=== PATIENT | female | born 1985 | race African-American/Black ===

== ENCOUNTER 2024-09-26 09:20 | Emergency (ER) | payer MEDICAID, OTHER ==
[~2024-09-26] VITALS: Ht 157.5 cm; Wt 102.5 kg
[2024-09-26 12:04] VITALS: BP 141/96; TEMP 98.3
[2024-09-26 12:12] VITALS: PULSE 97; RESP 18; O2SAT 97
[2024-09-26] MEDS: PROMETHAZINE W/CODEINE 5 ML ORAL SYRUP PO ONE (12:30)
[2024-09-26] MEDS: ACETAMINOPHEN 325 MG TAB PO ONE (13:22)
[2024-09-26 13:33] LABS: COVID19 ANTIGEN SOFIA FIA NEGATIVE (NEGATIVE); Rapid Influenza A Negative (Negative); Rapid Influenza B Negative (Negative)
[2024-09-26] MEDS ORDERED: ACET500T58 PO (13:49)
[2024-09-26] MEDS ORDERED: IBUP-1454 PO (13:49)
[2024-09-26] MEDS ORDERED: PSEU120T18 PO (13:49)
[2024-09-26] MEDS ORDERED: BENZ100C97 PO (13:49)
[2024-09-26] MEDS ORDERED: PROM1SOL4 PO (13:49)
--- NOTE | 2024-09-26 13:49 | ED.PDOC ---
History of Present Illness HPI Comments 39-year-old with no MHx presents for URI symptoms x3 weeks. Complains of a nonproductive cough, frontal headache, diarrhea x2 days. Had two nonbloody loose stools today. Also complains of sneezing, runny nose. Taking Tylenol as needed. [id number] medication helps minimally Denies fevers chills night sweats unintentional weight loss Denies persistent chest pain, shortness of breath, leg swelling Denies history of asthma nor any breathing conditions Denies history of pneumonia Denies recent international travel Chief Complaint: Flu like Time Seen by MD: 11:38 Reviewed Notes: Nurses Notes, Medications, Allergies Information Source: Patient Family History Family History: Reviewed,noncontributory to illness Social History Smoker: Non-Smoker Alcohol: Denies ETOH Use Drugs: Denies Drug Use All Other Systems: Reviewed and Negative (Per HPI) Physical Exam General Appearance: No Apparent Distress, Normal HEENT: Normal ENT Inspection, Pharynx Normal, TMs Normal Neck: Full Range of Motion, Non-Tender, Normal, Normal Inspection Respiratory: Chest Non-Tender, Lungs Clear, No Accessory Muscle Use, No Respiratory Distress, Normal Breath Sounds Cardiovascular: No Edema, No JVD, No Murmur, No Gallop, Normal Peripheral Pulses, Regular Rate/Rhythm Breast Exam: Deferred Gastrointestinal: No Organomegaly, Non Tender, No Pulsatile Mass, Normal Bowel Sounds, Soft Genitalia: Deferred Pelvic: Deferred Rectal: Deferred Extremities: No calf tenderness, Normal capillary refill, Normal inspection, Normal range of motion, Non-tender, No pedal edema Musculoskeletal : Apperance: Normal Neurologic: Alert, fondant cooker II-XII nml as Tested, No Motor Deficits, Normal Affect, Normal Mood, No Sensory Deficits Cerebellar Function: Normal Reflexes: Normal Skin: Dry, Normal Color, Warm Lymphatic: No Adenopathy Was a procedure done? Was a procedure done?: No Fever Differential Dx Differential Diagnosis: Viral Syndrome, Pharyngitis, Other X-Ray, Labs, Meds, VS Vital Signs Date Time Temp Pulse Resp B/P (MAP) Pulse Ox O2 Delivery O2 Flow Rate FiO2 09/26/24 12:12 97 18 97 Room Air 09/26/24 12:04 98.3 89 16 141/96 (111) 100 98.3 09/26/24 09:35 97.9 97 18 140/86 (104) 97 Lab Test 09/26/24 12:35 Range/Units Influenza Type A Antigen Negative Negative Influenza Type B Antigen Negative Negative SARS-CoV-2 Antigen (Rapid) Negative NEGATIVE X-Ray, Labs, Meds, VS Comment History and physical consistent of URI Take medication as prescribed No concerns for pneumonia at this time. No risk factors. No indication for antibiotics Discussed that cough can linger up to 6 weeks after viral URI ED precautions if cough does not alleviate or if cough worsens Supportive care and return precautions discussed Counseled viral infection and explained that antibiotics would not be helpful in resolving the illness sooner. Recommended vitamin C, rest, handwashing, and symptomatic care. Expect 2-week course with possibly of cough lingering up to 6 weeks. Nonpharmacological remedies for fluids has been recommended as well Time of 1ST Reevaluation: 13:00 Reevaluation 1ST: Improved Patient Education/Counseling: Diagnosis, Treatment Family Education/Counseling: Diagnosis, Treatment Departure 1 Departure Time of Disposition: 13:47 Impression: Primary Impression: Viral syndrome Disposition: HOME / SELF CARE / HOMELESS Condition: Stable e-Prescriptions Pseudoephedrine-Guaifenesin (Mucinex D) 1 Tab Tab 1 TAB PO BID for 10 Days, #20 TAB 0 Refills Prov: SHAUNA FINNEY DECONTAMINATION TECHNICIAN 09/26/24 Promethazine-Dm (Promethazine Dm 6.25-15 mg/5Ml) 1 Ivy Ivy 5 ML PO TID for 10 Days, #150 ML 0 Refills Prov: SHAUNA FINNEY DECONTAMINATION TECHNICIAN 09/26/24 Benzonatate (Benzonatate) 100 Mg Cap 1 CAP PO TID for 10 Days, #30 CAP 0 Refills Prov: SHAUNA FINNEY DECONTAMINATION TECHNICIAN 09/26/24 Acetaminophen (Acetaminophen) 500 Mg Tab 500 MG PO Q4HP PRN for 10 Days, #50 TAB 0 Refills Prov: SHAUNA FINNEY DECONTAMINATION TECHNICIAN 09/26/24 Ibuprofen (Ibuprofen) 600 Mg Tab 1 TAB PO TID for 10 Days, #30 TAB 0 Refills Prov: SHAUNA FINNEY DECONTAMINATION TECHNICIAN 09/26/24 Critical Care Note Critical Care Time?: No Stability Stability form required: No Heart Score Heart Score: Heart Score Response (Comments) Value History N/A 0 EKG N/A 0 Age N/A 0 Risk Factors N/A 0 Troponin N/A 0 Total 0 SHAUNA FINNEY NP Sep 26, 2024 13:49
== END 2024-09-26 14:06 | disposition home or self-care (01) ==
LOC: ER 09:20
DX: B34.9 Viral infection, unspecified (principal); Z20.822 Contact with and (suspected) exposure to COVID-19
CPT/HCPCS: 36415; 87426; 87804